=== PATIENT | female | born 1970 | race Hispanic/Latino ===

== ENCOUNTER 2019-08-27 22:21 | Emergency (ER) | payer BC ==
--- NOTE | 2019-08-28 02:19 | Vascular Lab Report ---
DUPLEX DOPPLER LOWER EXTREMITY VEINS, LEFT INDICATION: Left lower extremity swelling. Pain behind the left knee. TECHNIQUE: Duplex doppler imaging was performed through the veins of the left lower extremity using venous compr ession and other maneuvers. COMPARISON: None available. FINDINGS: Common femoral vein: Negative. Superficial femoral vein: Negative. Popliteal vein: Negative. Calf veins: Negative. Additional findings: There is no evidence of a popliteal cyst or other abnormality. IMPRESSION: No sonographic evidence for DVT in the left lower extremity. Signer Name: Lane Garces MD Signed: 08/28/2019 2:15 AM Workstation Name: [id number]
[2019-08-28] MEDS ORDERED: fentaNYL 100 MCG/2 ML INJ IM ONE (07:23)
[2019-08-28] MEDS ORDERED: ONDANSETRON 4 MG/2 ML INJ IM ONE (07:23)
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
[2019-08-28 08:00] VITALS: BP 113/76
== END 2019-08-28 08:02 | disposition home or self-care (01) ==
LOC: ED 22:21
DX: M54.32 Sciatica, left side (principal); I10 Essential (primary) hypertension; K21.9 Gastro-esophageal reflux disease without esophagitis; F17.210 Nicotine dependence, cigarettes, uncomplicated; F41.9 Anxiety disorder, unspecified; F32.9 Major depressive disorder, single episode, unspecified; Z79.899 Other long term (current) drug therapy; Z88.0 Allergy status to penicillin
CPT/HCPCS: 93971; 96372; 99283; J2405; J3010